=== PATIENT | male | born 1985 | race Caucasian/White ===

== ENCOUNTER 2017-11-10 10:00 | Emergency (ER) | payer OTHER, BC ==
--- NOTE | 2017-11-10 10:05 | EDM.PDOC ---
ED HPI GENERAL MEDICAL PROBLEM - General Chief Complaint: ENT Problem Stated Complaint: NOSE INJURY Time Seen by Provider: 11/10/17 10:01 Source of Information: Reports: Patient, EMS History Limitations: Reports: No Limitations - History of Present Illness INITIAL COMMENTS - FREE TEXT/NARRATIVE: HISTORY AND PHYSICAL: History of present illness: [Artem is a 32-year-old male arrived via EMS for nasal injury. Patient reports that he was working under his pick-up when a 10 [address] shaft fell on his nose approximately 30 minutes prior to arrival to the ED. He denies any LOC, headache, dizziness, visual changes, vomiting. Injury occurred at work. ] Review of systems: As per history of present illness and below otherwise all systems reviewed and negative. Past medical history: As per history of present illness and as reviewed below otherwise noncontributory. Surgical history: As per history of present illness and as reviewed below otherwise noncontributory. Social history: No reported history of drug or alcohol abuse. Family history: As per history of present illness and as reviewed below otherwise noncontributory. Physical exam: HEENT: There is a 1 cm laceration on the bridge of the nose. Dried blood noted in the left nares. No tenderness or step offs of the orbital bones. No hemotympanum. normocephalic, pupils reactive, negative for conjunctival pallor or scleral icterus, mucous membranes moist, throat clear, neck supple, nontender , trachea midline. Lungs: Clear to auscultation, breath sounds equal bilaterally, chest nontender. Heart: S1S2, regular, negative for clicks, rubs, or JVD. Abdomen: Soft, nondistended, nontender. Negative for masses or hepatosplenomegaly. Negative for costovertebral tenderness. Pelvis: Stable nontender. Genitourinary: Deferred. Rectal: Deferred. Extremities: Atraumatic, negative for cords or calf pain. Neurovascular unremarkable. Neuro: Awake, alert, oriented. Cranial nerves II through XII unremarkable. Cerebellum unremarkable. Motor and sensory unremarkable throughout. Exam nonfocal. Notes: Diagnostics: [CT maxillofacial w/o contrast] Therapeutics: [Dermabond] Impression: [Nose injury/laceration] Plan: [#1 keep the area clean and dry as instructed #2 Follow up with your PCP #3 Return to ED as needed as discussed] Definitive disposition and diagnosis as appropriate pending reevaluation and review of above. Nose Pain Score (Numeric/FACES): 4 - Related Data Allergies Allergy/AdvReac Type Severity Reaction Status Date / Time codeine Allergy Headache Verified 11/10/17 10:04 morphine Allergy Nausea and Verified 11/10/17 10:04 Vomiting Home Meds: Home Meds Lisinopril [Prinivil] 20 mg PO DAILY 11/10/17 [History] ED ROS ENT - Review of Systems Review Of Systems: ROS reveals no pertinent complaints other than HPI. ED EXAM, ENT - Physical Exam Exam: See Below (see dictation) ED ENT PROCEDURES - Laceration/Wound Repair Nose Lac/wound length in cm: 1 Appearance: Superficial Distal NVT: Neuro & Vascular Intact, No Tendon Injury Skin Prep: Saline Exploration/Debridement/Repair: Wound Explored, In a Bloodless Field, Explored to Base, Other (dermabond) Course - Vital Signs Last Recorded V/S: Last Vital Signs Temp Pulse 69 11/10/17 10:04 Resp 18 11/10/17 10:04 BP 135/66 11/10/17 10:04 Pulse Ox 95 11/10/17 10:04 - Orders/Labs/Meds Orders: Active Orders 24 hr Category Date Time Status Maxillofacial w/o CM [Max Facial Sinus wo Cont] [CT] Exams 11/10/17 10:04 Taken Stat Meds: Medications Discontinued Medications Generic Name Dose Route Start Last Admin Trade Name Freq PRN Reason Stop Dose Admin Octyl Cyanoacrylate 1 applic 11/10/17 11:19 11/10/17 11:25 Dermabond Advance TOP 11/10/17 11:20 1 applic ONETIME ONE Administration Departure - Discharge Information Instructions: Laceration Care, Adult, [id number] Forms: ED Department Discharge Additional Instructions: The following information is given to patients seen in the emergency department who are being discharged to home. This information is to outline your options for follow-up care. We provide all patients seen in our emergency department with a follow-up referral. The need for follow-up, as well as the timing and circumstances, are variable depending upon the specifics of your emergency department visit. If you don't have a primary care physician on staff, we will provide you with a referral. We always advise you to contact your personal physician following an emergency department visit to inform them of the circumstance of the visit and for follow-up with them and/or the need for any referrals to a consulting specialist. The emergency department will also refer you to a specialist when appropriate. This referral assures that you have the opportunity for follow-up care with a specialist. All of these measure are taken in an effort to provide you with optimal care, which includes your follow-up. Under all circumstances we always encourage you to contact your private physician who remains a resource for coordinating your care. When calling for follow-up care, please make the office aware that this follow-up is from your recent emergency room visit. If for any reason you are refused follow-up, please contact the [facility] Emergency Department at and asked to speak to the emergency department charge nurse. [facility] [address] [place] [id number] #1 keep the area clean and dry as instructed #2 Follow up with your PCP #3 Return to ED as needed as discussed - My Orders Last 24 Hours: My Active Orders 11/10/17 10:04 Maxillofacial w/o CM [Max Facial Sinus wo Cont] [CT] Stat - Assessment/Plan Last 24 Hours: My Active Orders 11/10/17 10:04 Maxillofacial w/o CM [Max Facial Sinus wo Cont] [CT] Stat
[2017-11-10] MEDS ORDERED: Octyl 2-Cyanoacrylate 1 Tube TOP ONE (11:19)
--- NOTE | 2017-11-10 15:03 | CT ---
EXAM DATE: 11/10/17 PATIENT'S AGE: 32 Patient: JINNY NAZARIO Facility: [place], [place] Site . Site : 1985 Study: CT Facial [id number]/[id number] 11:00:24 AM Ordering Physician: Doctor Jimenes Final Report: INDICATION: Facial injury TECHNIQUE: CT maxillofacial without contrast. COMPARISON: None FINDINGS: Facial bones: No fractures or bone lesions. Specifically the nasal bones, temporomandibular joints, maxilla and mandible appear intact. Orbits and globes: Unremarkable. Globes are intact. No sign of intraorbital hemorrhage or emphysema. Sinuses: No acute or significant findings. Soft tissues: Unremarkable. IMPRESSION: No sign of acute injury. Specifically the nasal bone is intact. Please note that all CT scans at this facility use dose modulation, iterative reconstruction, and/or weight-based dosing when appropriate to reduce radiation dose to as low as reasonably achievable. Dictated by Ming Meade MD @ Nov 10 2017 11:41AM (Electronic Signature) Report Signed by Proxy. [facility]
== END 2017-11-10 12:05 | disposition home or self-care (01) ==
LOC: MW.ED 10:00 → EDBD 10:00 → MW.ED 12:05
DX: S01.21XA Laceration without foreign body of nose, initial encounter (principal); Z88.5 Allergy status to narcotic agent; W20.8XXA Other cause of strike by thrown, projected or falling object, initial encounter
CPT/HCPCS: 12011; 70486; 99283; A9270